=== PATIENT | male | born 1975 | race Caucasian/White ===

== ENCOUNTER 2019-09-21 19:59 | Emergency (ER) | payer BC, SELFPAY ==
[~2019-09-21] VITALS: Ht 170.2 cm; Wt 74.8 kg
[2019-09-21 20:42] VITALS: Ht 170.2 cm; Wt 74.8 kg
[2019-09-21 21:37] VITALS: BP 128/64
== END 2019-09-21 21:37 | disposition home or self-care (01) ==
LOC: ED 19:59
DX: J06.9 Acute upper respiratory infection, unspecified (principal); Z20.828 Contact with and (suspected) exposure to other viral communicable diseases
CPT/HCPCS: Q0092; U0003-CS